=== PATIENT | female | born 1995 | race Two or more races ===

== ENCOUNTER 2016-08-09 23:36 | Emergency (ER) | payer SELFPAY ==
[2016-08-10 02:15] LABS: CALCIUM 9.2 mg/dL (8.5-10.1); CARBON DIOXIDE 24.4 mmol/L (21-32); CHLORIDE SERUM 104 mmol/L (98-107); CREATININE SERUM 0.4 mg/dL (0.6-1.0); GFR1 > 60 mL/min; GLUCOSE SERUM 100 mg/dL (74-106); POTASSIUM SERUM 3.6 mmol/L (3.5-5.1); SODIUM SERUM 139 mmol/L (136-145)
[2016-08-10 02:19] LABS: ALKALINE PHOSPHATASE 93 U/L (46-116); ALT/SGPT 102 U/L (14-59); AMYLASE 31 U/L (25-115); AST/SGOT 242 U/L (15-37); BILIRUBIN TOTAL 0.4 mg/dL (0.20-1.00); LIPASE 121 IU/L (73-393)
[2016-08-10 02:20] LABS: ALBUMIN 3.2 g/dL (3.4-5.0)
[2016-08-10 02:24] LABS: BASOPHIL % 1.5 % (0-2); PLATELET COUNT 246 x10^3mcL (130-400); RED CELL DISTRIBUTION WIDTH 12.7 % (11.5-14.5)
[2016-08-10 04:26] VITALS: BP 110/62
== END 2016-08-10 04:26 | disposition left against medical advice (07) ==
LOC: ED 23:36
PROVIDERS: Emergency Medicine
DX: O99.62 Diseases of the digestive system complicating childbirth (principal); K81.9 Cholecystitis, unspecified; K80.20 Calculus of gallbladder without cholecystitis without obstruction; D72.829 Elevated white blood cell count, unspecified; R74.0 Nonspecific elevation of levels of transaminase and lactic acid dehydrogenase [LDH]; D64.9 Anemia, unspecified
CPT/HCPCS: J8597; Q0092

== ENCOUNTER 2017-02-17 21:20 | Inpatient (IN) | payer MEDICAID ==
[~2017-02-17] VITALS: Ht 149.9 cm; Wt 50.1 kg
[2017-02-17 23:57] LABS: CALCIUM 9.4 mg/dL (8.5-10.1); CARBON DIOXIDE 26.5 mmol/L (21-32); CHLORIDE SERUM 104 mmol/L (98-107); CREATININE SERUM 0.6 mg/dL (0.6-1.0); GFR1 > 60 mL/min; GLUCOSE SERUM 108 mg/dL (74-106); POTASSIUM SERUM 3.5 mmol/L (3.5-5.1); SODIUM SERUM 142 mmol/L (136-145)
[2017-02-18 00:04] LABS: BASOPHIL % 0.6 % (0-2); PLATELET COUNT 321 x10^3mcL (130-400); RED CELL DISTRIBUTION WIDTH 13.3 % (11.5-14.5)
[2017-02-18 00:16] LABS: ALKALINE PHOSPHATASE 319 U/L (46-116); ALT/SGPT 520 U/L (14-59); AST/SGOT 700 U/L (15-37); BILIRUBIN TOTAL 1.4 mg/dL (0.20-1.00); LIPASE 127 IU/L (73-393); TOTAL PROTEIN, SERUM 8.1 g/dL (6.4-8.2)
[2017-02-18] MEDS ORDERED: MOT600 PO (03:29)
[2017-02-18] MEDS ORDERED: ZOF4 PO (03:30)
[2017-02-18] MEDS ORDERED: HYDROCODONE-ACETAMIN PO (03:32)
[2017-02-18 04:30] LABS: AMPHETAMINE QUAL UR NONE DETECTED (NEG <=1000)
[2017-02-18 04:37] LABS: CHOLESTEROL/HDL RATIO 2.7; MAGNESIUM 2.2 mg/dL (1.8-2.4); PHOSPHOROUS 4.4 mg/dL (2.5-4.9)
[2017-02-18 04:38] LABS: T3 TOTAL 1.25 ng/mL
[2017-02-18 04:47] LABS: FREE T4 1.2 ng/dL (0.76-1.46); FREE THYROXINE INDEX 4.1 ug/dL (1.4-4.5); T4(THYROXINE) 11.3 ug/dL (4.7-13.3)
[2017-02-18 04:59] VITALS: BP 99/65
[2017-02-18 11:42] VITALS: BP 118/74
[2017-02-18 17:03] VITALS: BP 92/62
[2017-02-18 18:03] LABS: UA SPECIFIC GRAVITY 1.015 (1.005-1.035); microscopic required? YES; urine erythrocyte NEGATIVE (NEGATIVE)
[2017-02-18 21:45] VITALS: BP 99/66
[2017-02-19 06:21] LABS: BASOPHIL % 0.4 % (0-2); PLATELET COUNT 271 x10^3mcL (130-400); RED CELL DISTRIBUTION WIDTH 13.6 % (11.5-14.5)
[2017-02-19 06:26] LABS: ALKALINE PHOSPHATASE 208 U/L (46-116); ALT/SGPT 269 U/L (14-59); AST/SGOT 131 U/L (15-37); BILIRUBIN DIRECT 0.09 mg/dL (0.0-0.2); BILIRUBIN TOTAL 0.44 mg/dL (0.20-1.00); CALCIUM 8.8 mg/dL (8.5-10.1); CARBON DIOXIDE 27.1 mmol/L (21-32); CHLORIDE SERUM 104 mmol/L (98-107); CREATININE SERUM 0.6 mg/dL (0.6-1.0); GFR1 > 60 mL/min; GLUCOSE SERUM 96 mg/dL (74-106); MAGNESIUM 1.7 mg/dL (1.8-2.4); PHOSPHOROUS 4.9 mg/dL (2.5-4.9); POTASSIUM SERUM 3.3 mmol/L (3.5-5.1); SODIUM SERUM 140 mmol/L (136-145); TOTAL PROTEIN, SERUM 6.6 g/dL (6.4-8.2)
[2017-02-19 06:27] LABS: ALBUMIN 3.1 g/dL (3.4-5.0)
[2017-02-19 09:09] VITALS: BP 107/71
[2017-02-19] MEDS ORDERED: ACETAMINOPHEN-H1 TA1 PO (12:10)
[2017-02-19 13:24] VITALS: BP 107/71
[2017-02-19 14:01] VITALS: BP 104/70
== END 2017-02-19 14:54 | disposition home or self-care (01) | DRG 263 ==
LOC: ED 21:20 → DU 02-18 02:58
PROVIDERS: Emergency Medicine; Surgery; ADMIT Family Medicine Sports Medicine
PROC: 0FT44ZZ Resection of Gallbladder, Percutaneous Endoscopic Approach (ICD-10-PCS; principal; 2017-02-18 08:30)
DX: K80.00 Calculus of gallbladder with acute cholecystitis without obstruction (principal); N17.0 Acute kidney failure with tubular necrosis; E87.6 Hypokalemia; R16.0 Hepatomegaly, not elsewhere classified; D64.9 Anemia, unspecified; Z68.22 Body mass index [BMI] 22.0-22.9, adult
CPT/HCPCS: 83880; 84439; 90658; 94150; C1887; J0330; J2175; J2250; J2270; J2405; J2543; J2704; J2710; J3010; J3490; J7030; J7120; Q0092; Q9967

== ENCOUNTER 2017-02-23 22:16 | Emergency (ER) | payer MEDICAID ==
[~2017-02-23 22:16] MED LIST: ACETAMINOPHEN-H1 TA1 PO; HYDROCODONE-ACETAMIN PO; MOT600 PO; ZOF4 PO
[2017-02-23 23:42] LABS: BASOPHIL % 0.5 % (0-2); PLATELET COUNT 358 x10^3mcL (130-400); RED CELL DISTRIBUTION WIDTH 12.7 % (11.5-14.5)
[2017-02-23 23:48] LABS: CALCIUM 9.2 mg/dL (8.5-10.1); CARBON DIOXIDE 26.7 mmol/L (21-32); CHLORIDE SERUM 102 mmol/L (98-107); CREATININE SERUM 0.6 mg/dL (0.6-1.0); GFR1 > 60 mL/min; GLUCOSE SERUM 109 mg/dL (74-106); POTASSIUM SERUM 3.5 mmol/L (3.5-5.1); SODIUM SERUM 141 mmol/L (136-145)
[2017-02-23 23:49] LABS: UA SPECIFIC GRAVITY 1.015 (1.005-1.035); microscopic required? YES; urine erythrocyte NEGATIVE (NEGATIVE)
[2017-02-24 00:05] LABS: ALBUMIN 3.6 g/dL (3.4-5.0); ALKALINE PHOSPHATASE 483 U/L (46-116); ALT/SGPT 603 U/L (14-59); BILIRUBIN TOTAL 0.53 mg/dL (0.20-1.00); LIPASE 184 IU/L (73-393)
[2017-02-24 00:14] LABS: TOTAL PROTEIN, SERUM 8.3 g/dL (6.4-8.2)
[2017-02-24 00:15] LABS: AST/SGOT 1232 U/L (15-37)
[2017-02-24 01:03] VITALS: BP 121/79
== END 2017-02-24 00:38 | disposition home or self-care (01) ==
LOC: ED 22:16
PROVIDERS: Emergency Medicine
DX: R10.13 Epigastric pain (principal); R11.0 Nausea; Z90.49 Acquired absence of other specified parts of digestive tract
CPT/HCPCS: J2270; J2405; J3490; J7030